=== PATIENT | female | born 1995 | race Hispanic/Latino ===

== ENCOUNTER 2017-11-04 17:41 | Outpatient (CLI) | payer OTHER | END 2017-11-04 20:16 | disposition home or self-care (01) | LOC: LABHHL 17:41 → TRG 17:41 → EDSTATUS 19:56 → TRG 20:00 | PROVIDERS: ATTEND Obstetrics & Gynecology | DX: O36.0120 Maternal care for anti-D [Rh] antibodies, second trimester, not applicable or unspecified (principal); Z3A.27 27 weeks gestation of pregnancy | CPT/HCPCS: 86850; 86900; 86901; 96372; J2790 ==

== ENCOUNTER 2017-12-14 12:31 | Inpatient (IN) | payer OTHER ==
[2017-12-14 13:17] LABS: Hematocrit 29.2 % (30.3-42.9); Mean Corpuscular HGB Conc 34 % (30-34); Mean Corpuscular Hemoglobin 30 pg (28-32); Mean Corpuscular Volume 86 fl (79-97); Platelet Count 172 K/mm3 (140-440); Red Blood Count 3.38 M/mm3 (3.65-5.03)
[2017-12-14 13:37] LABS: Bacteria,Urine 2+ /HPF (Negative); Bilirubin,Urine NEG (Negative); Blood,Urine NEG (Negative); Color,Urine Yellow (Yellow); Mucus,Urine FEW /HPF; Urobilinogen,Urine < 2.0 mg/dL (<2.0)
[2017-12-14 13:41] LABS: Alanine Aminotransferase 12 units/L (7-56); Uric Acid 5.6 mg/dL (3.5-7.6)
[2017-12-14] MEDS ORDERED: SUDAFED PO PRN (14:20)
--- NOTE | 2017-12-14 14:22 | History and Physical Report ---
History of Present Illness Date of examination: 12/14/17 Date of admission: 12/14/2017 Past History - Obstetrical History Expected Date of Delivery: 01/30/18 Actual Gestation: 33 Week(s) 2 Day(s) : 1 Medications and Allergies Allergies Allergy/AdvReac Type Severity Reaction Status Date / Time No Known Allergies Allergy Verified 12/14/17 12:34 Home Medications Medication Instructions Recorded Confirmed Last Taken Type Vit-Fe Fumar-FA [ 1 tab PO QDAY 12/14/17 12/14/17 12/12/17 09: 00 History Vitamin] 1 Active Meds: Active Medications Acetaminophen (Tylenol) 1,000 mg PO Q6H PRN PRN Reason: Pain, Mild (1-3) Lactated Ringer's (Lactated Ringers) 1,000 mls @ 125 mls/hr IV DIRECT LAURA Multivitamins/Iron/Calcium ( Vitamin) 1 each PO QDAY LAURA Pseudoephedrine HCl (Sudafed) 60 mg PO Q8H PRN PRN Reason: Nasal Congestion Zolpidem Tartrate (Ambien) 5 mg PO QHS PRN PRN Reason: Sleep - Vital Signs Vital signs: Vital Signs Pulse BP 103 H 167/97 12/14/17 12:50 12/14/17 12:50 Temp Pulse Resp BP Pulse Ox 98.6 F 109 H 20 136/87 12/14/17 12:54 12/14/17 14:05 12/14/17 12:54 12/14/17 14:05 Results Result Diagrams: 12/14/17 13:04 12/14/17 13:04 Abnormal lab results 12/14/17 12/14/17 Range/Units 13:04 13:04 WBC 12.0 H (4.5-11.0) K/mm3 RBC 3.38 L (3.65-5.03) M/mm3 Hgb 10.0 L (10.1-14.3) gm/dl Hct 29.2 L (30.3-42.9) % Creatinine 0.4 L (0.7-1.2) mg/dL Lactate Dehydrogenase 222 H (91-180) units/L All other labs normal.
--- NOTE | 2017-12-14 16:27 | Ultrasound Report ---
FINAL REPORT PROCEDURE: Follow-up abdominal ultrasound. TECHNIQUE: Real-time sonography performed for focused follow-up or re-evaluation of each size/growth parameters and amniotic fluid or re-evaluation of suspected or confirmed abnormality on prior imaging. CPT 53238 HISTORY: gestational hypertension, well-being. COMPARISON: No prior studies are available for comparison. FINDINGS: There is a single intrauterine fetus in cephalic presentation. Cardiac activity is documented at 135 beats per minute. The amniotic fluid volume appears satisfactory. The amniotic fluid index measures 12.8 centimeters. The placenta is anterior and left lateral in location. There is no evidence of placenta previa. The placenta is grade 2. The measured parameters are as follows: Biparietal diameter 7.8 centimeters, head circumference 29.1 centimeters, abdominal circumference 32.0 centimeters, femur length 6.9 centimeters. The calculated menstrual age is 33 weeks 5 days. The estimated date of confinement is 01/27/2018. The estimated weight is 2533 grams. IMPRESSION: Single viable fetus in cephalic presentation with a menstrual age of 33 weeks 5 days.
--- NOTE | 2017-12-14 16:28 | Ultrasound Report ---
FINAL REPORT PROCEDURE: Ultrasound biophysical profile without nonstress test. TECHNIQUE: Sonographic evaluation for breathing, movement, tone, and amniotic fluid volume was performed. CPT 57320 HISTORY: gestational hypertension, well-being. COMPARISON: No prior studies are available for comparison. FINDINGS: Amniotic fluid volume: 2. breathin. movement: 2. tone: 2. Score: 8 of 8. IMPRESSION: Normal biophysical profile.
[2017-12-14] MEDS: LACTATED RINGERS 1,000 ML IV SCH (19:30)
[2017-12-14] MEDS: AMBIEN PO PRN (21:50)
[2017-12-15] MEDS: PRENATAL VITAMIN PO SCH (09:39)
[2017-12-15] MEDS: TYLENOL PO PRN ×2 (11:50→20:56)
[2017-12-15] MEDS: LACTATED RINGERS 1,000 ML IV SCH (14:11)
--- NOTE | 2017-12-15 17:38 | Progress Note ---
Subjective - Subjective Date of service: 12/15/17 Patient reports: movement normal Objective - Vital Signs Vital Signs: Vital Signs - 12hr 12/15/17 12/15/17 12/15/17 07:44 08:07 11:44 Temperature 97 F L 97.2 F L Pulse Rate 85 105 H Respiratory 18 20 Rate Blood Pressure 122/60 137/86 142/81 [Right] 12/15/17 11:50 Temperature Pulse Rate Respiratory 20 Rate Blood Pressure [Right] - Labs Labs: Abnormal Labs 12/14/17 12/14/17 13:04 13:04 WBC 12.0 H RBC 3.38 L Hgb 10.0 L Hct 29.2 L Creatinine 0.4 L Lactate Dehydrogenase 222 H
[2017-12-15] MEDS ORDERED: NACL 0.9% 1000 ML 1,000 ML IV SCH (22:00)
[2017-12-15] MEDS: AMBIEN PO PRN (22:19)
[2017-12-16] MEDS: PRENATAL VITAMIN PO SCH (10:12)
--- NOTE | 2017-12-16 11:02 | Progress Note ---
Assessment and Plan HD 2 with mild preeclampsia and labile gestational hypertension at 33+ weeks. Plan to discharge today on antihypertensive meds and bedrest. Subjective - Subjective Date of service: 12/16/17 Principal diagnosis: Mild preeclampsia Interval history: Patient completed 24 hour urine last night wiht 400 grams of protein. Patient still with irregular blood pressures, some mildly elevated, some in normal range. Patient reports: movement normal Objective - Vital Signs Vital Signs: Vital Signs - 12hr 12/15/17 12/16/17 12/16/17 23:40 05:07 05:35 Temperature 98.5 F 98.0 F Pulse Rate 92 H 88 Respiratory 18 18 Rate Blood Pressure 125/77 159/80 142/73 [Right] 12/16/17 08:16 Temperature 97.1 F L Pulse Rate 92 H Respiratory 24 Rate Blood Pressure 142/90 [Right] - Exam Cardiovascular: Regular rate, Normal S1 Lungs: Clear to auscultation, Normal air movement Abdomen: Present: normal appearance, soft. Absent: distention, tenderness Uterus: Present: normal FHR: auscultation normal Uterine Contraction Pattern: Absent Extremities: edema (1+) Deep Tendon Reflex Grade: Normal +2 - Labs Labs: Abnormal Labs 12/14/17 12/14/17 12/15/17 13:04 13:04 16:34 WBC 12.0 H RBC 3.38 L Hgb 10.0 L Hct 29.2 L Creatinine 0.4 L Lactate Dehydrogenase 222 H Ur Total Protein 24 Hr 400.00 H Urine Total Protein 16 H Laboratory Results - last 24 hr 12/15/17 16:34 Urine Total Volume 2500 Ur Total Protein 24 Hr 400.00 H Urine Total Protein 16 H
--- NOTE | 2017-12-16 11:04 | Discharge Summary ---
Providers - Providers Date of Admission: 12/14/17 12:40 Date of discharge: 12/16/17 Attending physician: RADHA LYNCH 12/14/17 14:23 Consult to Physician [CONS] Urgent Consulting Provider: JOAN JOHNSON Reason For Exam: labile gestational hypertension Place consult to:: office Notified:: recreational director Primary care physician: RADHA LYNCH Hospitalization Reason for admission: other (gestational hypertension) Discharge diagnosis: other (gestational hypertension) Condition at discharge: Good Disposition: DC-01 TO HOME OR SELFCARE Plan - Discharge Medications Prescriptions: NIFEdipine XL [Procardia Xl] 30 mg PO QDAY #30 tablet - Provider Discharge Summary Activity: other (modified bedrest) Diet: routine Instructions: routine Additional instructions: [] Smoking cessation referral if applicable(refer to patient education folder for contact #) [] Refer to [facility] Booklet Call your doctor immediately for: * Fever > 100.5 * Heavy vaginal bleeding ( >1 pad per hour) * Severe persistent headache * Shortness of breath * Reddened, hot, painful area to leg or breast * Drainage or odor from incision. * Keep incision clean and dry at all times and follow doctor's instructions regarding bathing/showering - Follow up plan Follow up: RADHA LYNCH MD [Primary Care Provider] - 7 Days
[2017-12-18 12:04] VITALS: BP 141/89
== END 2017-12-16 13:00 | disposition home or self-care (01) | DRG 781 ==
LOC: TRG 12:31 → LD 12:40 → OBSVTOIN 12:40 → TRG 14:15
PROVIDERS: ADMIT Obstetrics & Gynecology; ATTEND Obstetrics & Gynecology
DX: O14.03 Mild to moderate pre-eclampsia, third trimester (principal); Z3A.33 33 weeks gestation of pregnancy; O13.3 Gestational [pregnancy-induced] hypertension without significant proteinuria, third trimester
CPT/HCPCS: 36415; 59025; 76816; 76819; 81001; 82565; 83615; 84156; 84450; 84460; 84550; 85027; J7030; J7120

== ENCOUNTER 2017-12-28 12:48 | Inpatient (IN) | payer OTHER ==
[2017-12-28] MEDS ORDERED: ePHEDrine SULFATE IV PRN (18:33)
[2017-12-28] MEDS ORDERED: STADOL IV PRN (18:33)
[2017-12-28] MEDS ORDERED: MINERAL OIL PO PRN (18:33)
[2017-12-28] MEDS ORDERED: SUBLIMAZE IV PRN (18:33)
[2017-12-28] MEDS ORDERED: XYLOCAINE 2% INFILTRATI ONE (18:33)
[2017-12-28] MEDS ORDERED: ZOFRAN IV PRN (18:33)
[2017-12-28] MEDS ORDERED: BRETHINE SUB-Q PRN (18:33)
[2017-12-28] MEDS ORDERED: PITOCin/NS 20 UNIT/1000ML DRIP 20 UNITS/1,000 ML BAG IV SCH (19:00)
[2017-12-28] MEDS ORDERED: PITOCin/NS 30 UNIT/500ML 30 UNITS/500 ML BAG IV SCH (19:00)
[2017-12-28 19:59] LABS: Hematocrit 33.7 % (30.3-42.9); Hemoglobin 11.2 gm/dl (10.1-14.3); Mean Corpuscular HGB Conc 33 % (30-34); Mean Corpuscular Hemoglobin 29 pg (28-32); Mean Corpuscular Volume 87 fl (79-97); Platelet Count 175 K/mm3 (140-440); Red Blood Count 3.87 M/mm3 (3.65-5.03); Red Cell Distribution Width 16.2 % (13.2-15.2)
[2017-12-28 20:12] LABS: BUN/Creatinine Ratio 14; Blood Urea Nitrogen 7 mg/dL (7-17); Hemolysis Index 6
[2017-12-28] MEDS: NORMOSOL-R PH 7.4 1,000 ML IV SCH (21:01)
[2017-12-28] MEDS ORDERED: APRESOLINE IV PRN (21:24)
[2017-12-28] MEDS ORDERED: PEPCID IV PRN (21:25)
[2017-12-28] MEDS: NORMODYNE PO SCH (21:58)
[2017-12-29] MEDS ORDERED: TYLENOL PO PRN ×2 (00:25→12:28)
[2017-12-29] MEDS: NORMOSOL-R PH 7.4 1,000 ML IV SCH ×2 (02:39→09:22)
[2017-12-29] MEDS ORDERED: POLYCILLIN/NS 2 GM/100 ML 2 GM/100 ML BAG IV SCH (03:00)
[2017-12-29] MEDS ORDERED: NARCAN 2 MG/2 ML IV PRN (05:43)
[2017-12-29] MEDS ORDERED: ePHEDrine SULFATE IV PRN (05:43)
--- NOTE | 2017-12-29 05:43 | Anesthesia Consultation ---
Anesthesia Consult and Med Hx Date of service: 12/29/17 - Airway Anesthetic Teeth Evaluation: Good ROM Head & Neck: Adequate Mental/Hyoid Distance: Adequate Mallampati Class: Class II Intubation Access Assessment: Good - Pulmonary Exam CTA: Yes - Cardiac Exam Cardiac Exam: No Murmur - Pre-Operative Health Status ASA Pre-Surgery Classification: ASA2 Proposed Anesthetic Plan: Epidural - Pulmonary Hx Asthma: Yes (EXERCISE INDUCED) COPD: No Hx Pneumonia: No - Cardiovascular System Hx Hypertension: Yes (PIH) - Central Nervous System Hx Seizures: No Hx Psychiatric Problems: No - Endocrine Hx Renal Disease: No Hx End Stage Renal Disease: No Hx Hypothyroidism: No Hx Hyperthyroidism: No - Hematic Hx Anemia: No Hx Sickle Cell Disease: No - Other Systems Hx Alcohol Use: No
[2017-12-29] MEDS ORDERED: fentaNYL-BUPIV 2 MCG/ML-0.125% 200 MCG/100 ML BAG EPIDURAL SCH (06:00)
[2017-12-29] MEDS ORDERED: AMPICILLIN/NS 1 GM/50 ML 1 GM/50 ML BAG ONE (07:09)
[2017-12-29] MEDS ORDERED: AMPICILLIN/NS 1 GM/50 ML 1 GM/50 ML BAG IV SCH (07:30)
--- NOTE | 2017-12-29 08:30 | History and Physical Report ---
History of Present Illness Date of examination: 12/28/17 Date of admission: 12/28/17 12:48 Chief complaint: My blood pressure is causing me to be induced History of present illness: Patient is a 22 year old who began having issues with hypertension about 3 weeks ago and mild preeclampsia. She had been doing better on current regimen but was found to have an additional increase in pressure on her office visit today. The decision was then made to proceed with induction of labor for preeclampsia Past History Past Medical History: no pertinent history Past Surgical History: no surgical history Social history: - Obstetrical History Expected Date of Delivery: 01/23/18 Actual Gestation: 36 Week(s) 4 Day(s) : 1 Medications and Allergies Allergies Allergy/AdvReac Type Severity Reaction Status Date / Time No Known Allergies Allergy Verified 12/14/17 12:34 Home Medications Medication Instructions Recorded Confirmed Last Taken Type Vit-Fe Fumar-FA [ 1 tab PO QDAY 12/14/17 12/28/17 12/28/17 10: 00 History Vitamin] NIFEdipine XL [Procardia Xl] 30 mg PO QDAY #30 tablet 12/16/17 12/28/17 10:00 Rx Active Meds: Active Medications Acetaminophen (Tylenol) 650 mg PO Q4H PRN PRN Reason: Pain, Mild (1-3) Last Admin: 12/29/17 00:41 Dose: 650 mg Butorphanol Tartrate (Stadol) 1 mg IV Q2H PRN PRN Reason: Pain, Moderate (4-6) Ephedrine Sulfate (Ephedrine Sulfate) 10 mg IV Q2M PRN PRN Reason: Hypotension Famotidine (Pepcid) 10 mg IV BID PRN PRN Reason: heart burn Last Admin: 12/28/17 22:02 Dose: 10 mg Fentanyl (Sublimaze) 100 mcg IV Q2H PRN PRN Reason: Labor Pain Last Admin: 12/29/17 04:37 Dose: 100 mcg Hydralazine HCl (Apresoline) 5 mg IV Q30MIN PRN PRN Reason: Blood Pressure Last Admin: 12/28/17 22:19 Dose: 5 mg Parenteral Electrolytes (Normosol-R Ph 7.4) 1,000 mls @ 125 mls/hr IV DIRECT LAURA Last Admin: 12/29/17 02:39 Dose: 125 mls/hr Oxytocin/Sodium Chloride (Pitocin/Ns 20 Unit/1000ml Drip) 20 units in 1,000 mls @ 125 mls/hr IV DIRECT LAURA Oxytocin/Sodium Chloride (Pitocin/Ns 30 Unit/500ml) 30 units in 500 mls @ 4 mls /hr IV TITR LAURA; Protocol Last Admin: 12/28/17 21:01 Dose: 1 ml/hr, 1 mls/hr Fentanyl/Bupivacaine/Sodium Chlor (Fentanyl-Bupiv 2 Mcg/Ml-0.125%) 200 mcg in 100 mls @ 12 mls/hr EPIDURAL TITR LAURA; Protocol Last Admin: 12/29/17 06:49 Dose: 12 mls/hr Ampicillin Sodium (Ampicillin/Ns 1 Gm/50 Ml) 1 gm in 50 mls @ 100 mls/hr IV Q4HR LAURA; Protocol Last Admin: 12/29/17 07:12 Dose: 100 mls/hr Labetalol HCl (Normodyne) 200 mg PO BID LAURA Last Admin: 12/28/17 21:58 Dose: 200 mg Mineral Oil (Mineral Oil) 30 ml PO QHS PRN PRN Reason: Constipation Naloxone HCl (Narcan 2 Mg/2 Ml) 0.2 mg IV Q5M PRN PRN Reason: Respiratory sedation Ondansetron HCl (Zofran) 4 mg IV Q8H PRN PRN Reason: Nausea And Vomiting Last Admin: 12/29/17 03:48 Dose: 4 mg Terbutaline Sulfate (Brethine) 0.25 mg SUB-Q ONCE PRN PRN Reason: Hyperstimulation/Hypertonicity Review of Systems All systems: negative Constitutional: chronic headaches Genitourinary: contractions - Vital Signs Vital signs: Vital Signs Pulse BP 112 H 161/99 12/28/17 14:02 12/28/17 14:02 Temp Pulse Resp BP Pulse Ox 98.6 F 139 H 16 156/88 95 12/29/17 07:14 12/29/17 08:11 12/29/17 07:14 12/29/17 07:15 12/29/17 08:11 - Physical Exam Breasts: Positive: deferred Cardiovascular: Regular rate, Normal S1, Normal S2 Lungs: Positive: Clear to auscultation, Normal air movement Abdomen: Positive: normal appearance, soft, normal bowel sounds Genitourinary (Female): Positive: normal external genitalia, normal perenium Vulva: both: normal Vagina: Positive: normal moisture Uterus: Positive: normal size Deep Tendon Reflex Grade: Hyperactive,very brisk +4 - Obstetrical FHR: auscultation normal Cervical Dilatation: 2 Cervical Effacement Percentage: 70 station: 0 Uterine Contraction Pattern: Regular Uterine Contraction Intensity: Moderate Results Result Diagrams: 12/29/17 21:48 12/28/17 19:47 Abnormal lab results 12/28/17 12/28/17 Range/Units 19:32 19:47 WBC 14.6 H (4.5-11.0) K/mm3 RDW 16.2 H (13.2-15.2) % Sodium 135 L (137-145) mmol/L Chloride 97.0 L (98-107) mmol/L Carbon Dioxide 19 L (22-30) mmol/L Creatinine 0.5 L (0.7-1.2) mg/dL Glucose 115 H (65-100) mg/dL All other labs normal. Assessment and Plan IUP at 35.4 weeks with preeclampsia presenting today for induction of labor. As patient is already dilated, will begin with pitocin. Anticipate .
[2017-12-29] MEDS ORDERED: MAGNESIUM SULFATE 4GM/100ML 4 GM/100 ML BAG IV ONE (08:31)
--- NOTE | 2017-12-29 08:31 | Procedure Note ---
OB Delivery Note - Delivery Date of Delivery: 12/29/17 Surgeon: RADHA LYNCH (-) Estimated blood loss: 200cc - Vaginal Delivery presentation: vertex Delivery position: OA Intrapartum events: PROM->1hr before delivery, gestational hypertension Delivery induction: oxytocin Delivery monitor: external FHT, external uterine Route of delivery: Indicators for instrumentation: nonreassuring FHR tracing Delivery placenta: spontaneous Delivery cord: 3 umbilical vessels Episiotomy: none Delivery laceration: 1st degree Delivery repair: chromic Anesthesia: epidural Delivery comments: Viable female delivered over intact perineum. Cord clamped and cut and handed to waiting NICU personnel. Placenta delivered spontaneously and intact with 3vc. Small laceration repaired with 2.0 vicryl. Excellent hemostasis. - A at 1 minute: 8 at 5 minutes: 9 Infant Gender: Female (6 pounds 12 ounces)
[2017-12-29] MEDS: NORMODYNE PO SCH ×2 (09:58→21:18)
[2017-12-29] MEDS: MAGNESIUM SULFATE 40GM/1000ML 40 GM/1,000 ML BAG IV SCH (10:00)
[2017-12-29] MEDS ORDERED: MOTRIN PO PRN (10:00)
[2017-12-29] MEDS ORDERED: AMMONIA INHALANT IH ONE ×2 (10:35→16:40)
[2017-12-29] MEDS ORDERED: TUCKS PAD TP PRN (12:28)
[2017-12-29] MEDS ORDERED: BENADRYL PO PRN (12:28)
[2017-12-29] MEDS ORDERED: LANSINOH TP PRN (12:28)
[2017-12-29] MEDS ORDERED: PHENERGAN PR PRN (12:28)
[2017-12-29] MEDS ORDERED: ZOFRAN IV PRN (12:28)
[2017-12-29] MEDS ORDERED: SODIUM CHLORIDE FLUSH SYRINGE 10 ML IV SCH (12:28)
[2017-12-29] MEDS ORDERED: DULCOLAX PR PRN (12:28)
[2017-12-29] MEDS ORDERED: PHENERGAN PO PRN (12:28)
[2017-12-29] MEDS ORDERED: MILK OF MAGNESIA PO PRN (12:28)
[2017-12-29] MEDS: NORCO 5/325 PO PRN ×2 (12:52→21:14)
[2017-12-29] MEDS: PRENATAL VITAMIN PO SCH (12:53)
[2017-12-29] MEDS: COLACE PO SCH (12:54)
[2017-12-29] MEDS ORDERED: LACTATED RINGERS 1,000 ML IV SCH (14:00)
[2017-12-29] MEDS: MOTRIN PO SCH (18:59)
[2017-12-29 22:19] LABS: Hematocrit 23.4 % (30.3-42.9)
[2017-12-30] MEDS: MOTRIN PO SCH ×3 (00:20→11:20)
[2017-12-30] MEDS: COLACE PO SCH ×3 (00:20→21:31)
[2017-12-30] MEDS: MAGNESIUM SULFATE 40GM/1000ML 40 GM/1,000 ML BAG IV SCH (01:42)
[2017-12-30] MEDS ORDERED: BOOSTRIX IM ONE (06:00)
[2017-12-30] MEDS: PRENATAL VITAMIN PO SCH (11:20)
[2017-12-30] MEDS: NORMODYNE PO SCH ×2 (11:20→21:29)
--- NOTE | 2017-12-30 12:11 | Discharge Summary ---
Providers - Providers Date of Admission: 12/28/17 12:48 Date of discharge: 12/31/17 Attending physician: RADHA LYNCH Primary care physician: RADHA LYNCH Hospitalization Reason for admission: active labor Delivery: Laceration: 1st degree Discharge diagnosis: delivery baby: female Condition at discharge: Good Disposition: DC-01 TO HOME OR SELFCARE Plan - Discharge Medications Prescriptions: Ibuprofen [Motrin 600 MG tab] 600 mg PO Q6HR #30 tablet NIFEdipine XL [Procardia Xl] 30 mg PO QDAY #30 tablet - Provider Discharge Summary Activity: routine, no sex for 6 weeks, no heavy lifting 4 weeks, no strenuous exercise Diet: routine Instructions: routine Additional instructions: [] Smoking cessation referral if applicable(refer to patient education folder for contact #) [] Refer to [facility] Booklet Call your doctor immediately for: * Fever > 100.5 * Heavy vaginal bleeding ( >1 pad per hour) * Severe persistent headache * Shortness of breath * Reddened, hot, painful area to leg or breast * Drainage or odor from incision. * Keep incision clean and dry at all times and follow doctor's instructions regarding bathing/showering - Follow up plan Follow up: RADHA LYNCH MD [Primary Care Provider] - 7 Days Forms: [facility] Discharge Summary
--- NOTE | 2017-12-30 12:18 | Progress Note ---
Assessment and Plan PPD 1. Patient is currently on magnesium at 2 grams/ hour. She is tolerating medicine well. Patient is diuresing at 200cc/hr. Will continue mag for 6 hours to increase diuresis. If pressure remains stable will consider discharge on tomorrow. Subjective - Subjective Date of service: 12/30/17 Interval history: Patient on well on day #1. Patient hasn't had some concerns regarding epidural placement and timing of epidural on yesterday. I addressed the issues with the patient and her and they seemed to be satisfied. Patient reports: appetite normal, voiding normally, pain well controlled, ambulating normally [place]: doing well Objective - Vital Signs Latest vital signs: Vital Signs Temp Pulse Resp BP BP Pulse Ox 12/30/17 11:20 108 H 148/95 12/30/17 10:22 98.1 F 115 H 18 140/79 98 12/30/17 06:52 18 12/30/17 06:00 113 H 18 128/79 96 12/30/17 05:52 18 12/30/17 04:20 97.9 F 109 H 18 125/86 97 12/30/17 02:40 105 H 18 125/80 97 12/30/17 01:20 18 12/30/17 00:30 98.3 F 104 H 18 118/54 96 12/30/17 00:20 18 12/29/17 22:36 93 H 18 118/75 12/29/17 22:14 18 12/29/17 21:20 100 H 12/29/17 21:18 110 H 126/74 12/29/17 21:14 18 12/29/17 20:35 97.9 F 110 H 18 126/74 97 12/29/17 16:00 98.2 F 92 H 18 124/64 Intake and Output 12/29/17 12/30/17 12/30/17 22:59 06:59 14:59 Intake Total 360 1025 Output Total 600 1400 1100 Balance -240 -375 -1100 Intake: IV 785 MAGNESIUM SULFATE 40GM/ 785 1000ML 40 gm In 1,000 ml @ 2 GM/HR 50 mls/hr IV DIRECT LAURA Rx#:[id number] Oral 360 240 Output: Urine 600 1400 1100 Indwelling Catheter 600 1400 1100 Other: Total, Intake Amount 120 120 Total, Output Amount 600 1400 1100 - Exam Breasts: Present: deferred Cardiovascular: Present: Regular rate, Normal S1, Normal S2 Lungs: Present: Clear to auscultation, Normal air movement Abdomen: Present: normal appearance, soft, normal bowel sounds Vulva: both: normal Uterus: Present: normal, firm Extremities: Present: edema (plus 1) - Labs Labs: Abnormal lab results 12/29/17 Range/Units 21:48 Hgb 8.0 L D (10.1-14.3) gm/dl Hct 23.4 L D (30.3-42.9) %
[2017-12-30] MEDS: FEOSOL PO SCH ×2 (13:21→21:31)
[2017-12-31] MEDS: MOTRIN PO SCH ×3 (06:20→14:51)
[2017-12-31] MEDS: COLACE PO SCH ×2 (09:27→10:00)
[2017-12-31] MEDS: NORMODYNE PO SCH (09:27)
[2017-12-31] MEDS: FEOSOL PO SCH ×2 (09:27→14:51)
[2017-12-31] MEDS ORDERED: PROCARDIA XL PO SCH (12:00)
[2017-12-31] MEDS: PRENATAL VITAMIN PO SCH (14:50)
[2017-12-31] MEDS: NORCO 5/325 PO PRN (17:10)
[2017-12-31 23:53] VITALS: BP 138/93
== END 2017-12-31 22:10 | disposition home or self-care (01) | DRG 775 ==
LOC: LD 12:48 → OB 12-29 11:56
PROVIDERS: ADMIT Obstetrics & Gynecology; ATTEND Obstetrics & Gynecology
PROC: 10E0XZZ Delivery of Products of Conception, External Approach (ICD-10-PCS; principal; 2017-12-29)
PROC: 30233S1 Transfusion of Nonautologous Globulin into Peripheral Vein, Percutaneous Approach (ICD-10-PCS; 2017-12-29)
PROC: 0HQ9XZZ Repair Perineum Skin, External Approach (ICD-10-PCS; 2017-12-29)
PROC: 3E0R3BZ Introduction of Anesthetic Agent into Spinal Canal, Percutaneous Approach (ICD-10-PCS; 2017-12-29)
PROC: 00HU33Z Insertion of Infusion Device into Spinal Canal, Percutaneous Approach (ICD-10-PCS; 2017-12-29)
PROC: 3E033VJ Introduction of Other Hormone into Peripheral Vein, Percutaneous Approach (ICD-10-PCS; 2017-12-29)
PROC: 3E0234Z Introduction of Serum, Toxoid and Vaccine into Muscle, Percutaneous Approach (ICD-10-PCS; 2017-12-30)
DX: O13.4 Gestational [pregnancy-induced] hypertension without significant proteinuria, complicating childbirth (principal); O14.04 Mild to moderate pre-eclampsia, complicating childbirth; O42.013 Preterm premature rupture of membranes, onset of labor within 24 hours of rupture, third trimester; O99.52 Diseases of the respiratory system complicating childbirth; Z37.0 Single live birth; O76 Abnormality in fetal heart rate and rhythm complicating labor and delivery; O70.0 First degree perineal laceration during delivery; J45.909 Unspecified asthma, uncomplicated; Z3A.35 35 weeks gestation of pregnancy
CPT/HCPCS: 36415; 80048; 84550; 85014; 85018; 85027; 85461; 86592; 86850; 86900; 86901; 88307; 90471; 90715; 99211; G0463; J0290; J0360; J2405; J2590; J2790; J3010; J3475; J7120